=== PATIENT | male | born 1950 | race Caucasian/White ===

== ENCOUNTER 2021-05-03 20:35 | Inpatient (IN) ==
[2021-05-03 21:08] LABS: Basophils % 0.3 %; Eosinophils % 0.1 %; Hematocrit 38.2 % (37.5-50.1); Hemoglobin 12.7 g/dL (12.9-16.9); Immature Granulocytes % 0.4 % (0-4); Lymphocytes # 1.3 K/mcL (0.6-4.6); Lymphocytes % 13.6 %; Mean Corpuscular HGB Conc 33.2 g/dL (31.6-35.5); Mean Corpuscular Hemoglobin 34.2 pg (28.0-33.3); Mean Platelet Volume 9.4 fL (9.4-12.4); Monocytes % 10.5 %; Platelet Count 119 K/mcL (140-400); Red Blood Count 3.71 M/mcL (4.19-5.50); Red Cell Distribution Width 13.5 % (11.5-14.5); Segmented Neutrophils % 75.1 %; White Blood Count 9.4 K/mcL (4.3-11.1)
[2021-05-03 21:29] LABS: BUN/Creatinine Ratio 12 (6-26); Blood Urea Nitrogen 23 mg/dL (8-23); Calcium 9.3 mg/dL (8.6-10.3); Carbon Dioxide 25 mEq/L (23-29); Chloride 106 mEq/L (98-107); Creatine Kinase 396 Units/L (30-223); Glucose 136 mg/dL (70-105); Osmolality,Calculated 298 (280-300); Potassium 4.6 mEq/L (3.5-5.1); Sodium 141 mEq/L (136-145); Troponin I < 0.03 ng/mL (< 0.04); eGFR For African Americans 44 (> 60); eGFR For Non-African Americans 36 (> 60)
[2021-05-03] MEDS ORDERED: Perflutren Lipid Microsphere 1.3 ML in 0.9 % Sodium Chloride 8.7 ML IVP PRN (23:41)
[2021-05-04] MEDS ORDERED: Acetaminophen 325 MG TABLET PO PRN (00:07)
[2021-05-04] MEDS ORDERED: Naloxone 0.4 MG/ML INJ IVP PRN (00:07)
[2021-05-04] MEDS ORDERED: Ondansetron 4 MG/2 ML VIAL IVP PRN (00:07)
[2021-05-04] MEDS ORDERED: Melatonin 3 MG TABLET PO PRN (00:07)
[2021-05-04 02:44] LABS: Hemoglobin 12.2 g/dL (12.9-16.9); Mean Corpuscular Hemoglobin 34.1 pg (28.0-33.3); Mean Corpuscular Volume 103.4 fL (83.0-100.0); Mean Platelet Volume 9.5 fL (9.4-12.4); Platelet Count 115 K/mcL (140-400); Red Blood Count 3.58 M/mcL (4.19-5.50); Red Cell Distribution Width 13.5 % (11.5-14.5); White Blood Count 7.6 K/mcL (4.3-11.1)
[2021-05-04 02:54] LABS: INR 1.2; Prothrombin Time 13.7 Seconds (9.4-12.1)
[2021-05-04 03:03] LABS: Calcium 9.2 mg/dL (8.6-10.3); Chol/HDL Ratio 3.2 (0-4.9); Potassium 4.2 mEq/L (3.5-5.1)
[2021-05-04 03:05] LABS: Troponin I < 0.03 ng/mL (< 0.04)
[2021-05-04 03:18] LABS: Thyroid Stimulating Hormone 1.963 mcIU/mL (0.340-5.600)
[2021-05-04] MEDS: 0.9 % Sodium Chloride 1,000 ML IVC SCH ×2 (06:03→20:12)
[2021-05-04 07:03] LABS: Bilirubin,Urine Negative (Negative); Blood,Urine Negative (Negative); Clarity,Urine Clear (Clear); Color,Urine Yellow (Yellow); Glucose,Urine (UA) Normal (Normal); Ketones,Urine Negative (Negative); Leukocyte Esterase,Urine Negative (Negative); Nitrite,Urine Negative (Negative); Protein,Urine Trace mg/dL (Neg-Trace); Specific Gravity,Urine 1.027 (1.010-1.025); Urobilinogen,Urine Normal (Normal)
[2021-05-04] MEDS: Aspirin 81 MG TAB.CHEW PO SCH (08:14)
[2021-05-04] MEDS: Cholecalciferol (D-3) 1,000 UNIT (25MCG) TABLET PO SCH (08:14)
[2021-05-04] MEDS: Metoprolol XL (24 HR) Succ 25 MG TAB.ER.24H PO SCH (08:14)
[2021-05-04] MEDS: Ascorbic Acid 500 MG TABLET PO SCH (08:15)
[2021-05-04] MEDS: levETIRAcetam 250 MG TABLET PO SCH ×2 (08:16→20:06)
[2021-05-04] MEDS: amLODIPine 5 MG TABLET PO SCH (12:50)
[2021-05-04] MEDS: *HR* HYDROcodone/Acet 5/325 mg TABLET PO PRN (20:06)
[2021-05-05 01:52] LABS: Basophils % 0.3 %; Eosinophils # 0.1 K/mcL (0.0-0.6); Eosinophils % 1.2 %; Hematocrit 34.2 % (37.5-50.1); Hemoglobin 11.5 g/dL (12.9-16.9); Immature Granulocytes % 0.4 % (0-4); Lymphocytes # 1.3 K/mcL (0.6-4.6); Lymphocytes % 19.1 %; Mean Corpuscular HGB Conc 33.6 g/dL (31.6-35.5); Mean Corpuscular Hemoglobin 34.4 pg (28.0-33.3); Mean Corpuscular Volume 102.4 fL (83.0-100.0); Mean Platelet Volume 9.4 fL (9.4-12.4); Monocytes # 0.8 K/mcL (0.0-1.3); Monocytes % 11.8 %; Neutrophils # 4.6 K/mcL (1.6-8.9); Platelet Count 114 K/mcL (140-400); Red Blood Count 3.34 M/mcL (4.19-5.50); Red Cell Distribution Width 13.5 % (11.5-14.5); Segmented Neutrophils % 67.2 %; White Blood Count 6.9 K/mcL (4.3-11.1)
[2021-05-05 02:10] LABS: Calcium 8.6 mg/dL (8.6-10.3); Phosphorous 3.4 mg/dL (2.7-4.5)
[2021-05-05] MEDS: *HR* HYDROcodone/Acet 5/325 mg TABLET PO PRN ×2 (04:32→16:59)
[2021-05-05] MEDS: Metoprolol XL (24 HR) Succ 25 MG TAB.ER.24H PO SCH (09:10)
[2021-05-05] MEDS: Cholecalciferol (D-3) 1,000 UNIT (25MCG) TABLET PO SCH (09:10)
[2021-05-05] MEDS: levETIRAcetam 250 MG TABLET PO SCH (09:10)
[2021-05-05] MEDS: Ascorbic Acid 500 MG TABLET PO SCH (09:10)
[2021-05-05] MEDS: Aspirin 81 MG TAB.CHEW PO SCH (09:10)
[2021-05-05] MEDS: amLODIPine 5 MG TABLET PO SCH (09:11)
[2021-05-05] MEDS ORDERED: Isovue-370 500 ML BOTTLE IVP ONE (14:02)
[2021-05-05 16:59] LABS: Hematocrit 32.8 % (37.5-50.1); Hemoglobin 10.8 g/dL (12.9-16.9); Mean Corpuscular HGB Conc 32.9 g/dL (31.6-35.5); Mean Corpuscular Volume 103.1 fL (83.0-100.0); Mean Platelet Volume 9.4 fL (9.4-12.4); Platelet Count 116 K/mcL (140-400); Red Blood Count 3.18 M/mcL (4.19-5.50); Red Cell Distribution Width 13.2 % (11.5-14.5); White Blood Count 7.5 K/mcL (4.3-11.1)
[2021-05-05 17:04] LABS: Heparin anti-factor XA UFH < 0.04 IU/mL (0.30-0.70)
[2021-05-05 17:05] LABS: INR 1.1; Prothrombin Time 13.2 Seconds (9.4-12.1)
[2021-05-05] MEDS ORDERED: Heparin 25,000UNIT/250ML 1/2NS 25,000 UNIT/250 ML IV.SOLN IVC SCH (18:00)
[2021-05-05 19:01] VITALS: BP 147/71
[2021-05-05 20:01] LABS: Adenovirus Not Detected (Not Detect); Bordetella Pertussis Not Detected (Not Detect); Chlamydophila pneumoniae Not Detected (Not Detect); Coronavirus 229E Not Detected (Not Detect); Coronavirus HKU1 Not Detected (Not Detect); Coronavirus NL63 Not Detected (Not Detect); Coronavirus OC43 Not Detected (Not Detect); Human Metapneumovirus Not Detected (Not Detect); Human Rhinovirus/Enterovirus Not Detected (Not Detect); Influenza A Subtype 2009 H1 Not Detected (Not Detect); Influenza B Not Detected (Not Detect); Mycoplasma pneumoniae Not Detected (Not Detect); Parainfluenza Virus 1 Not Detected (Not Detect); Parainfluenza Virus 2 Not Detected (Not Detect); Parainfluenza Virus 3 Not Detected (Not Detect); Parainfluenza Virus 4 Not Detected (Not Detect); Respiratory Syncytial Virus Not Detected (Not Detect); SARS-CoV-2 Not Detected (Not Detect)
[2021-05-06] MEDS ORDERED: Aspirin 81 MG TAB.CHEW PO SCH (09:00)
== END 2021-05-05 21:15 | disposition short-term general hospital (02) | DRG 563 ==
LOC: EMEROOARM 20:35 → 3NENU 20:35
PROVIDERS: ADMIT Student in an Organized Health Care Education/Training Program; ATTEND Student in an Organized Health Care Education/Training Program